=== PATIENT | male | born 1950 | race Caucasian/White ===

== ENCOUNTER 2020-06-10 10:20 | Outpatient (CLI) | payer MEDICARE, SELFPAY ==
--- NOTE | 2020-07-29 08:15 | PCAUD ---
Charges were entered on 07/28/2020 for this patient, but date of service was 06/10. Charges were not entered on the date of service due to an oversight. -Ovidio Coffey, [facility]
== END 2020-06-10 10:21 | disposition home or self-care (01) ==
LOC: ANHBWCAUD 10:20
DX: Z01.10 Encounter for examination of ears and hearing without abnormal findings (principal); F72 Severe intellectual disabilities
CPT/HCPCS: 92556; 92567; 92587

== ENCOUNTER 2021-01-25 13:02 | Outpatient (CLI) | payer MEDICARE, SELFPAY | END 2021-01-25 13:03 | disposition home or self-care (01) | DX: H91.93 Unspecified hearing loss, bilateral (principal) | CPT/HCPCS: 92556; 92567; 92587 ==

== ENCOUNTER 2022-03-07 09:08 | Outpatient (CLI) | payer MEDICARE, SELFPAY | END 2022-03-07 09:09 | disposition home or self-care (01) | LOC: ANHBWCAUD 09:09 | PROVIDERS: Visit Provider Family Medicine | DX: H91.93 Unspecified hearing loss, bilateral (principal) | CPT/HCPCS: 92556; 92567; 92587 ==

== ENCOUNTER 2023-04-18 10:15 | Outpatient (CLI) | payer MEDICARE, MEDICAID, SELFPAY | END 2023-04-18 10:16 | disposition home or self-care (01) | PROVIDERS: Visit Provider Family Medicine | DX: F72 Severe intellectual disabilities (principal) | CPT/HCPCS: 99199 ==

== ENCOUNTER 2023-07-11 09:50 | Outpatient (CLI) | payer MEDICARE, MEDICAID, SELFPAY | END 2023-07-11 09:51 | disposition home or self-care (01) | DX: H91.93 Unspecified hearing loss, bilateral (principal) | CPT/HCPCS: 99199 ==

== ENCOUNTER 2024-04-23 09:19 | Outpatient (CLI) | payer MEDICARE, MEDICAID, SELFPAY | END 2024-04-23 09:20 | disposition home or self-care (01) | LOC: ANHBWCAUD 09:20 | PROVIDERS: Visit Provider Physician Assistant | DX: H91.93 Unspecified hearing loss, bilateral (principal) | CPT/HCPCS: 92556; 92567; 92587 ==

== ENCOUNTER 2024-08-19 14:58 | Outpatient (CLI) | payer MEDICARE, MEDICAID, SELFPAY ==
--- OUTSIDE RECORDS SUMMARY | 2024-08-19 15:27 | XMS_ITS | Clinical Summary ---
Author Organization [facility] Address [address] [place] [address] Care Team Providers Care Senior Patrol Agent Name Role Phone Jeanie Mc MD Primary Care Provider [phone] Allergies No known active allergies Medications azelastine 205.5 mcg (0.15 %) spray,non-aerosol 0.3 mL (2 sprays total) 2 (two) times a day 1 Active calcium carbonate-vitamin D3 1,250mg (500mg elemental) - 5 mcg (200 units) per tablet Take 1 tablet by mouth 2 (two) times a day with meals Active docusate sodium (COLACE) 100 mg capsule 7 Active finasteride (PROSCAR) 5 mg tablet Take 1 tablet (5 mg total) by mouth daily 9 Active Robafen 100 mg/5 mL syrup 3 (three) times a day as needed for cough Active lamoTRIgine (LaMICtal) 200 mg tablet Take 1 tablet (200 mg total) by mouth nightly 9 Active lurasidone (LATUDA) 60 mg tablet 1 tablet (60 mg total) daily Active QUEtiapine XR (SEROquel XR) 300 mg 24 hr tablet Take 1 tablet (300 mg total) by mouth nightly 1 Active QUEtiapine XR (SEROquel XR) 50 mg tablet extended release 24 hr Take 1 tablet (50 mg total) by mouth daily Active rivastigmine (EXELON) 6 mg capsule Take 1 capsule (6 mg total) by mouth 2 (two) times a day Active simvastatin (ZOCOR) 20 mg tablet Take 1 tablet (20 mg total) by mouth nightly Active ferrous sulfate 325 mg (65 mg of elemental iron) tabletIndications :Iron Deficiency Anemia Take 1 tablet (325 mg total) by mouth daily with breakfast Active lamoTRIgine (LaMICtal) 150 mg tablet Take 1 tablet (150 mg total) by mouth daily Active memantine (NAMENDA) 10 mg tabletIndications :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 Dementia Take 1 tablet (10 mg total) by mouth 2 (two) times a day Active acetaminophen (TYLENOL) 325 mg tablet Take 2 tablets (650 mg total) by mouth every 4 (four) hours as needed for pain Active aluminum-magnesiu m hydroxide-simethi cone (MAALOX) suspension 200-200-20 mg/5 mL Take 30 mL by mouth every 4 (four) hours as needed for heartburn Active UNABLE TO FIND Take 1 each by mouth as needed Med Name: Banofen Active bisacodyL 5 mg tablet Take 10 mg by mouth as needed Active bismuth subsalicylate (PEPTO-BISMOL) suspension Take 30 mL by mouth as needed for indigestion Active sulfamethoxazole- trimethoprim (BACTRIM DS) 800-160 mg per tablet Take by mouth 2 (two) times a day Active cephalexin (KEFLEX) 500 mg capsule Take 1 capsule (500 mg total) by mouth 4 (four) times a day 5 capsule Active Active Problems Problem Noted Date Diagnosed Date Left ureteral stone 08/10/2023 Surgical History Surgery Date Site/Laterality Comments OTHER SURGICAL HISTORY pt has had other surgeries, staff at [facility] not sure what they were at this time EXTRACORPOREAL SHOCK WAVE LITHOTRIPSY 08/16/2023 Medical History Medical History Date Comments Dementia (HCC) Severe intellectual disability HTN (hypertension) Hypercholesterolemia Paranoid schizophrenia (CMS/HCC) (HCC) BPH (benign prostatic hyperplasia) Anxiety Social History Tobacco Use Types Packs/Day Years Used Date Smoking Tobacco: Never Smokeless Tobacco: Never AUDIT-C Answer Date Recorded Q1: How often do you have a drink containing alcohol? Never 09/27/2023 Q2: How many drinks containi ng alcohol do you have on a typical day when you are drinking? Patient does not drink Frequency of Binge Drinking Not on file 01/2024 Personal Safety Answer Date Recorded Have you ever been in or are you currently in a harmful physical or emotional relationship or is someone making you feel afraid or unsafe? Denies 10/01/2023 Sex and Gender Information Value Date Recorded Sex Assigned at Not on file Legal Sex Male 1:41 AM [employer] Gender Identity Not on file Sexual Orientation Not on file Obstetrics History Last Filed Vital Signs Vital Sign Reading Time Taken Comments Blood Pressure 137/59 10/01/2023 8:53 PM CDT Pulse 81 10/01/2023 8:53 PM CDT Temperature 36.6 ??C (97.8 ??F) 10/01/2023 8:53 PM CD T Respiratory Rate 18 10/01/2023 8:53 PM CDT Oxygen Saturation 100% 10/01/2023 8:53 PM CDT Inhaled Oxygen Concentration - - Weight 81.6 kg (180 lb) 10/01/2023 8:53 PM CDT Height 182.9 cm (6') 10/01/2023 8:53 PM CDT Body Mass Index 24.41 10/01/2023 8:53 PM CDT Plan of Treatment Health Maintenance Due Date Last Done Comments Colon Cancer Screening-Colonoscopy 1950 Depression Screening 1950 Hepatitis C Screening 1950 Hepatitis B Screening 01/23/1968 Well Visit 65+ 2015 Zoster Vaccine (2 of 3) 03/02/2016 01/06/2016 Covid-19 Vaccine (2023-2 5 season) 2024 06/25/2023, 05/04/2022, 03/03/2022, Additional history exists Influenza Vaccine (#1) 2024 , 05/04/2022, 04/28/2021, Additional history exists Fall Risk Assessment 09/26/2024 09/27/2023, 08/10/19 24 DTaP/Tdap/Td Vaccine (3 - Td or Tdap) 10/12/2027 10/11/2017, 05/08/2008 Pneumococcal vaccine 65+ Completed 12/17/2015, 02/21 Medical Devices Implanted Type Area [employer] Device Identifier Shelf Expiration Date Model / Serial / Lot [employer] July Contour 6fr 26cm Large Inner Lumen Low Profile Bladder Tushar T[employer] Latex Free 180-223 - [id number] Implanted:Qty: 1 on 09/27/2023 by Kevin Alvarenga MD at [facility] Left: Ureter [employer] July 05/04/2026 [id number] / / [id number] Explanted Type Area [employer] Manager Device Identifier Shelf Expiration Date Model / Serial / Lot [employer] July Contour 6fr 26cm Large Inner Lumen Low Profile Bladder Tushar [employer] Latex Free 180-223 - [id number] Implanted:Qty: 1 on 08/16/2023 by Kevin Alvarenga MD at [facility] Explanted:Qty: 1 on 09/27/2023 at [facility] Left: Ureter [employer] July 04/10/2026 [id number] / / [id number] Insurance [employer] MEDICARE Care Teams Senior Patrol Agent Relationship Specialty Start Date End Date Jeanie Mc MD PCP - General Family Medicine 09/07/23
--- OUTSIDE RECORDS SUMMARY | 2024-08-19 15:27 | XMS_ITS | Clinical Summary ---
Author Organization [facility] Address [address] [facility], [place] [address] Phone Care Team Providers Care [place] Folder Name Role Phone Thomas Moody DPM Unavailable [phone] Anais Randolph MD Primary Care Provider [phone] Allergies No known active allergies Medications simvastatin (ZOCOR) 20 MG Tablet Take 20 mg by mouth daily. Active Oyster Shell 500 MG Tablet Take 500 mg by mouth 2 times daily. Active rivastigmine (EXELON) 6 MG Capsule Take 6 mg by mouth 2 times daily. Active docusate sodium (COLACE) 100 MG CapsuleIndicatio ns:Constipation, unspecified constipation type Take 1 Cap by mouth 2 times daily. 180 Cap 3 08/18/19 17 Active LamoTRIgine (LAMICTAL) 200 MG Tablet Take 200 mg by mouth 2 times daily. 11/12/19 19 Active Azelastine HCl 0.15 % Solution 2 Puffs 2 times daily. 10/29/19 21 Active finasteride (PROSCAR) 5 MG Tablet Take 1 Tablet by mouth nightly. 90 Tablet 11/05/19 24 Active memantine (NAMENDA) 10 MG Tablet Take 10 mg by mouth 2 times daily. Active bismuth subsalicylate (Stomach Relief) 262 MG/15ML Suspension Take 30 mL by mouth. Active bisacodyl EC (DULCOLAX) 5 MG Tablet Delayed Response Take 10 mg by mouth. Active aluminum & magnesium hydroxide-simeth icone (Antacid Regular Strength) 200-200-20 MG/5ML Suspension Take 30 mL by mouth. Active Lurasidone HCl 80 MG Tablet Take 80 mg by mouth every morning. Active diphenhydrAMINE (BENADRYL) 25 MG Tablet Take 25 mg by mouth every 6 hours as needed. Active Acetaminophen-gu aiFENesin (CHEST CONGESTION DAYTIME PO) Take by mouth as needed. Active acetaminophen (Tylenol) 325 MG Tablet Take 325 mg by mouth every 4 hours as needed for Moderate or more severe pain. Active QUEtiapine Fumarate 400 MG Tablet Take 400 mg by mouth 2 times daily. Active melatonin 3 MG Tablet Take 3 mg by mouth nightly. 07/28/19 25 Active methenamine (HIPREX) 1 GM Tablet Take 1 g by mouth 2 times daily. 07/26/19 25 Active Misc. Devices (Egg Crate Bed Pad) MiscIndications: Pressure injury of sacral region, stage 2 (HCC) Use nightly or when in bed for pressure relief. 1 Each 08/08/19 25 Active ZINC OXIDE, TOPICAL, 10 % Cream 1 Each by Apply externally route 2 times daily. 1 g 1 08/14/19 25 Active LamoTRIgine (LAMICTAL) 150 MG Tablet Take 150 mg by mouth daily. Reported on 09/28/2016 09/07/19 17 2023 Discontinued(M ed List Clean Up) ferrous sulfate 325 (65 Fe) MG Tablet Take by mouth. 2024 Discontinued(M ed List Clean Up) nystatin (MYCOSTATIN) 111975 UNIT/GM CreamIndications :Candidiasis of skin Apply 3 times daily for 90 days. Apply cream 3 times daily for 90 days, 7AM, 5PM, 9PM, Apply a thin layer to red area on buttocks, max dose 3 times in 24 hours. 60 g 3 05/13/20 24 2024 Discontinued(M ed List Clean Up) QUEtiapine Fumarate (SEROQUEL XR) 400 MG TABLET SR 24 HR Take 400 mg by mouth nightly. 2023 Discontinued(D uplicate Order) cephALEXin (KEFLEX) 500 MG Capsule Take 1 Capsule by mouth 4 times daily for 7 days. 28 Capsule 07/23/19 25 2024 Discontinued cephALEXin (KEFLEX) 500 MG Capsule Take 1 Capsule by mouth 4 times daily for 7 days. 28 Capsule 07/23/19 25 2024 Misc. Devices (Egg Crate Bed Pad) MiscIndications: Pressure injury of sacral region, stage 2 (HCC) Use nightly or when in bed for pressure relief. 1 Each 08/08/19 25 2024 Discontinued Active Problems Problem Noted Date Diagnosed Date Cellulitis and abscess of buttock 07/21/2024 Acute kidney injury 07/21/2024 Decubitus ulcers 07/21/2024 Fecal impaction 07/21/2024 Stercoral colitis 07/21/2024 Seizure disorder 07/21/2024 Sepsis 12/14/2020 Chronic constipation 10/09/2018 Alzheimer's dementia without behavioral disturba nce 09/28/2016 Psychotic mood disorder 09/28/2016 Benign prostatic hyperplasia without lower urinary tract symptoms 09/28/2016 Iron deficiency anemia 09/28/2016 Severe intellectual disability 12/10/2015 Parkinson's disease 07/12/2010 Anxiety disorder Hyperlipidemia Intellectual disability Paranoid schizophrenia Dementia BPH (benign prostatic hyperplasia) Resolved Problems Problem Noted Date Diagnosed Date Resolved Date Dental infection 12/14/2020 12/17/2020 UTI (urinary tract infection) 12/14/2020 12/17/2020 Essential hypertension, benign 06/07/2010 12/04/2019 Hypertension 07/28/2021 High cholesterol 01/24/2021 Anxiety 12/17/2020 Encounters Date Type Department Care Team Description 08/18/2024 Telephone [facility] [address] [place] [address] Maria L Hernandez APRN, PADDING MACHINE OPERATOR Form Completion 08/14/2024 12:30 PM CARPET SEWING MACHINE OPERATOR Office Visit [facility] [address] [place] [address] Maria L Hernandez APRN, PADDING MACHINE OPERATOR Elisabeth Bal PAC Pressure injury of sacral region, stage 2 (HCC) Discharge Disposition: Discharged to home or Selfcare 08/14/2024 Travel 08/08/2024 9:30 AM CARPET SEWING MACHINE OPERATOR Office Visit [facility] [place] [address] [place] [address] Maria L Hernandez APRN, PADDING MACHINE OPERATOR Pressure injury of sacral region, stage 2 (HCC) (Primary Dx); Parkinson's disease, unspecified whether dyskinesia present, unspecified whether manifestations fluctuate (HCC); Intellectual disability Discharge Disposition: Discharged to home or Selfcare 08/08/2024 Travel 07/21/2024 10:04 AM CARPET SEWING MACHINE OPERATOR - 07/23/2024 3:51 PM CARPET SEWING MACHINE OPERATOR Hospital Encounter [facility] [address] [place] [address] Manny Roy MD Dianati, Behfar, MD Bismack, Gregory Thomas, MD Cellulitis and abscess of buttock Discharge Disposition: Discharged to home or Selfcare 07/21/2024 Travel 06/03/2024 10:30 AM [facility] Office Visit [facility] [address] [place] [address] Anais Randolph MD Learning difficulty due to cognitive limitations (Primary Dx); Parkinson's disease with dyskinesia and fluctuating manifestations (HCC); Moderate dementia, unspecified dementia type, unspecified whether behavioral, psychotic, or mood disturbance or anxiety (HCC) Discharge Disposition: Discharged to home or Selfcare 06/03/2024 Travel 05/30/[address] [address] Anais Randolph MD Appointment (Athlete physical ) 05/25/2024 10:25 PM CARPET SEWING MACHINE OPERATOR - 05/26/2024 1:16 AM [facility] Emergency [facility] [address] [place] [address] Sigifredo Aguilera MD Transient alteration of awareness Discharge Disposition: Discharged to home or Selfcare 05/25/2024 Travel from Last 3 Months Immunizations Immunization Administration Dates Next Due Covid-19, Mrna, Lnp-s, Pf, 3 0 Mcg/0.3 Ml Dose (Pfizer) 04/28/2021,09/21/2020,08/31/2020 Influenza Vaccine greater than 3 yrs 03/23/2018, 03/23/2015 Influenza Vaccine, Quadrivalent, PF 03/24,05/04/2022,04/28/2021,2017,05/02/2017 Influenza Vaccine,unspecifie d Formulation 03/23/2014 Influenza, Injectable, Mdck,quadrivalent,with Preservative 04/30/2019 Influenza, Injectable, Quadrivalent 05/19/2016 Influenza, Quadrivalent, Adjuvanted 05/06/2020 Influenza, Seasonal, Injecta ble, Undefined 03/23/2018,04/14/2015,03/23/2015,2013,04/25/2013 PUR PCV-13 12/17/2015 Pneumococcal Vaccine - 13 Valent 12/17/2015 Pneumococcal Vaccine Adult - 23 Valent 03/16/2015 RSV, Recombinant, Protein Hurst bunit Rsvpref, Adjuvant Recon (Arexvy) 08/30/2023 TB Skin Test 11/19/2018,07/23/2014 TDAP Vaccine 10/11/2017,05/08/2008 Tetanus Toxoid, Unspecified Formulation 04/22/2008 Zoster Vaccine, live 01/06/2016 Social History Tobacco Use Types Packs/Day Years Used Date Smoking Tobacco: Never Smokeless Tobacco: Never Tobacco Cessation:Counseling Given: Not Answered Alcohol Use Standard Drinks/Week Comments No 0 (1 standard drink = 0.6 oz pur e alcohol) [facility] Utilities Answer Date Recorded In the past 12 months has e [employer], gas, oil, or water [employer] threatened to shut off services in your home? Patient declined 07/21/2024 Social Connection and Isolation Panel [NHANES] A nswer Date Recorded In a typical week, how many times do you talk on the phone with family, friends, or neighbors? Never 07/30/2023 How often do you get togethe r with friends or relatives? Patient declined 07/30/2023 How often do you attend druze or holiness serv ices? Patient declined 07/30/2023 Do you belong to any clubs o r organizations such as druze groups, unions, fraternal or athletic groups, or school groups? No 07/30/2023 How often do you attend meet ings of the clubs or organizations you belong to? Patient declined 07/30/2023 Are you , , di vorced, , never , or living with a partner? Never 07/30/2023 AUDIT-C Answer Date Recorded Q1: How often do you have a drink containing alc ohol? Never 07/30/2023 Q2: How many drinks containi ng alcohol do you have on a typical day when you are drinking? Patient declined 07/30/2023 Q3: How often do you have si x or more drinks on one occasion? Never 07/30/2023 Overall Financial Resource Strain (CARDIA) Answe r Date Recorded How hard is it for you to pa y for the very basics like food, housing, medical care, and heating? Patient unable to answer 07/30/2023 [employer] - Occupational Stress Questionnaire Answer Date Recorded Do you feel stress - tense, restless, nervous, or anxious, or unable to sleep at night because your mind is troubled all the time - these days? Patient declined 07/30/2023 Exercise Vital Sign Answer Date Recorde d On average, how many days pe r week do you engage in moderate to strenuous exercise (like a brisk walk)? 0 days 07/30/2023 On average, how many minutes do you engage in exercise at this level? 0 min 07/30/2023 Hunger Vital Sign Answer Date Recorded Within the past 12 months, y ou worried that your food would run out before you got the money to buy more. Patient declined Within the past 12 months, t he food you bought just didn't last and you didn't have money to get more. Patient declined PRAPARE - Transportation Answer Date Re corded In the past 12 months, has l ack of transportation kept you from medical appointments or from getting medications? Patient declined 07/21/2024 In the past 12 months, has l ack of transportation kept you from meetings, work, or from getting things needed for daily living? Patient declined 07/21/2024 Housing Stability Vital Sign Answer Noe e Recorded In the last 12 months, was t here a time when you were not able to pay the mortgage or rent on time? Patient unable to answer 07/30/2023 In the last 12 months, how m any places have you lived? 1 07/30/2023 In the last 12 months, was t here a time when you did not have a steady place to sleep or slept in a correction (including now)? No 07/30/2023 Housing Stability Vital Sign Answer Noe e Recorded In the last 12 months, was t here a time when you were not able to pay the mortgage or rent on time? Patient declined 07/21/20 24 In the past 12 months, how m any times have you moved where you were living? 1 07/21/2024 At any time in the past 12 m [facility], were you homeless or living in a correction (including now)? Patient declined 07/21/2024 Sexually Active Control Partners Comments Not Currently Sex and Gender Information Value Date Recorded Sex Assigned at Not on file Legal Sex Male 11:26 PM CDT Gender Identity Not on file Sexual Orientation Not on file Occupation Industry Job Start Date Job End Date disabled Not on file Not on file Not on file Last Filed Vital Signs Vital Sign Reading Time Taken Comments Blood Pressure 114/64 08/08/2024 9:40 AM CARPET SEWING MACHINE OPERATOR Pulse 86 08/08/2024 9:40 AM CARPET SEWING MACHINE OPERATOR Temperature 36.7 ??C (98 ??F) 08/08/2024 9:40 AM CARPET SEWING MACHINE OPERATOR Respiratory Rate 18 08/08/2024 9:40 AM CARPET SEWING MACHINE OPERATOR Oxygen Saturation 97% 08/08/2024 9:40 AM CARPET SEWING MACHINE OPERATOR Inhaled Oxygen Concentration - - Weight 83.9 kg (185 lb) 08/08/2024 9:40 AM CARPET SEWING MACHINE OPERATOR Height 177.8 cm (5' 10 ) 08/08/2024 9:40 AM CARPET SEWING MACHINE OPERATOR Body Mass Index 26.54 08/08/2024 9:40 AM CARPET SEWING MACHINE OPERATOR Plan of Treatment Upcoming Encounters Date Type Department Care Team (Late st Contact Info) Description 08/25/2024 9:30 AM CARPET SEWING MACHINE OPERATOR [facility] [address] [place] [phone] Markel Bonilla MD [address] [place] [address] Discharge Disposition: Discharged to home or Selfcare 08/26/2024 9:30 AM CARPET SEWING MACHINE OPERATOR Office Visit [facility] - [place] [address] [place] [phone] Maria L Hernandez, GATE GUARD, PADDING MACHINE OPERATOR [address] [place] [address] 11/07/2024 9:30 AM CDT Office Visit [facility] - [place] [address] [place] [phone] Anais Randolph MD [address] [place] [address] Health Maintenance Due Date Last Done Comments Hepatitis C Virus (HCV) Screening 1950 Cologuard 01/23/2000 Immunochemical Fecal Occult Blood 01/23/2000 Influenza Immunization (#1) 03/23/202403/24, 05/04/2022, 04/28/2021, Additional history exists SARS-COV-2 Immunization () 03/23/2024 06/25/2023, 05/04/2022, 03/03/2022, Additional history exists Td Immunization Every 10 Years (Adults With 1 Tdap) 10/12/2027 10/11/2017, 05/08/2008 Colonoscopy 12/02/2028 12/02/2018, 04/01/2013 Colorectal Cancer Screening 12/02/2028 12/02/2018 Pneumococcal Immunization (50+ years) Completed 12/17/2015, 12/17/2015, 03/16/2015 Pneumococcal Immunization Combined Discontinued 12/17/2015, 12/17/2015, 03/16/2015 Zoster Immunization Discontinued 01/06/2016 Respiratory Syncytial Virus (RSV) Immunization (Adult) Completed 08/30/2023 Hepatitis B Immunization Aged Out No longer eligible based on patient's age to complete this topic Meningococcal Immunization (ACWY) Aged Out No longer eligible based on patient's age to complete this topic Rotavirus Immunization Aged Out No lo nger eligible based on patient's age to complete this topic Procedures Procedure Name Priority Date/Time Associated Diagnosis Comments CBC WITH AUTO DIFFERENTIAL Routine 07/23/2024 5:34 AM CARPET SEWING MACHINE OPERATOR BASIC METABOLIC PANEL W/ CALCIUM TOTAL Routine 07/23/2024 5:34 AM CARPET SEWING MACHINE OPERATOR COMPLETE BLOOD COUNT (CBC) WITH DIFF Routine 07/23/2024 5:34 AM CARPET SEWING MACHINE OPERATOR CBC WITH AUTO DIFFERENTIAL Routine 07/22/2024 5:47 AM CARPET SEWING MACHINE OPERATOR COMPLETE BLOOD COUNT (CBC) WITH DIFF Routine 07/22/2024 5:47 AM CARPET SEWING MACHINE OPERATOR BASIC METABOLIC PANEL W/ CALCIUM TOTAL Routine 07/22/2024 5:47 AM CARPET SEWING MACHINE OPERATOR MRSA NASAL PCR STAT 07/21/2024 1:30 PM CARPET SEWING MACHINE OPERATOR MRSA NASAL BY PCR STAT 07/21/2024 1:3 0 PM CARPET SEWING MACHINE OPERATOR LACTIC ACID (LACTATE) STAT 07/21/2024 1:29 PM CARPET SEWING MACHINE OPERATOR CT PELVIS W/O CONTRAST SOFT TISSUE Stat with Interpretation 07/21/2024 11:46 AM CARPET SEWING MACHINE OPERATOR LACTIC ACID (LACTATE) STAT 07/21/2024 10:50 AM CARPET SEWING MACHINE OPERATOR GOLD TOP TUBE STAT 07/21/2024 10:44 AM CARPET SEWING MACHINE OPERATOR BLUE TOP TUBE STAT 07/21/2024 10:44 AM CARPET SEWING MACHINE OPERATOR CBC WITH AUTO DIFFERENTIAL STAT 07/21/2024 10:44 AM CARPET SEWING MACHINE OPERATOR EXTRA TUBES STAT 07/21/2024 10:44 AM CARPET SEWING MACHINE OPERATOR CMP (COMPREHENSIVE METABOLIC PANEL) STAT 07/21/2024 10:44 AM CARPET SEWING MACHINE OPERATOR COMPLETE BLOOD COUNT (CBC) WITH DIFF STAT 07/21/2024 10:44 AM CARPET SEWING MACHINE OPERATOR CRITICAL CARE Routine 07/21/2024 10:41 AM CARPET SEWING MACHINE OPERATOR XR CHEST SINGLE VIEW PORTABLE STAT 05/26/2024 12:38 AM CARPET SEWING MACHINE OPERATOR CT HEAD OR BRAIN WO CONTRAST Stat with Interpretation 05/26/2024 12:06 AM CARPET SEWING MACHINE OPERATOR URINALYSIS REFLEX IF INDICATED BY ABNORMAL RESULTS STAT 05/25/2024 11:24 PM CARPET SEWING MACHINE OPERATOR CULTURE, URINE STAT 05/25/2024 11:24 PM CARPET SEWING MACHINE OPERATOR CBC WITH AUTO DIFFERENTIAL STAT 05/25/2024 10:41 PM CARPET SEWING MACHINE OPERATOR COMPLETE BLOOD COUNT (CBC) WITH DIFF STAT 05/25/2024 10:41 PM CARPET SEWING MACHINE OPERATOR CMP (COMPREHENSIVE METABOLIC PANEL) STAT 05/25/2024 10:41 PM CARPET SEWING MACHINE OPERATOR POCT GLUCOSE STAT 05/25/2024 10:33 PM CARPET SEWING MACHINE OPERATOR EKG 12 LEAD STAT 05/25/2024 10:29 PM CARPET SEWING MACHINE OPERATOR EKG SCAN 05/25/2024 12:00 AM CDT from Last 3 Months Results * (ABNORMAL) CBC with Auto Differential (07/23/2024 5:34 AM CARPET SEWING MACHINE OPERATOR) Only the most recent of4 resultswithin the time period is included. WBC 9.06 4.00 - 12.00 10(3)/mcL 07/23/2024 5:52 AM CARPET SEWING MACHINE OPERATOR [facility] RBC 3.35(L) 4.40 - 5.80 10(6)/mcL 07/23/2024 5:52 AM CARPET SEWING MACHINE OPERATOR [facility] HEMOGLOBIN (HGB) 10.1(L) 13.0 - 16.5 g/dL 07/23/2024 5:52 AM CARPET SEWING MACHINE OPERATOR [facility] HEMATOCRIT (HCT) 30.9(L) 38.0 - 50.0 % 07/23/2024 5:52 AM CARPET SEWING MACHINE OPERATOR [facility] MCV 92.2 82.0 - 96.0 fL 07/23/2024 5:52 AM CARPET SEWING MACHINE OPERATOR [facility] MCH 30.1 26.0 - 32.0 pg 07/23/2024 5:52 AM [facility] MCHC 32.7 31.0 - 36.0 g/dL 07/23/2024 5:52 AM [facility] PLATELET COUNT 181 140 - 440 10(3)/[facility] 07/23/2024 5:52 AM [facility] RDW 14.1 11.8 - 15.5 % 07/23/2024 5:52 AM [facility] MPV 10.7 8.0 - 12.6 fL 07/23/2024 5:52 AM [facility] NEUTROPHILS 82.1(H) 40.0 - 68.0 % 07/23/2024 5:52 AM [facility] LYMPHOCYTES 6.5(L) 19.0 - 49.0 % 07/23/2024 5:52 AM [facility] MONOCYTES 10.0 3.0 - 13.0 % 07/23/2024 5:52 AM [facility] EOSINOPHILS 1.0 0.0 - 8.0 % 07/23/2024 5:52 AM [facility] BASOPHILS 0.4 0.0 - 1.0 % 07/23/2024 5:52 AM [facility] ABSOLUTE NEUTROPHILS 7.43(H) 1.40 - 5.30 10(3)/[facility] 07/23/2024 5:52 AM [facility] ABSOLUTE LYMPHOCYTES 0.59(L) 0.90 - 3.30 10(3)/[facility] 07/23/2024 5:52 AM [facility] ABSOLUTE MONOCYTES 0.91(H) 0.10 - 0.90 10(3)/[facility] 07/23/2024 5:52 AM [facility] ABSOLUTE EOSINOPHIL 0.09 0.00 - 0.50 10(3)/[facility] 07/23/2024 5:52 AM [facility] ABSOLUTE BASOPHILS 0.04 0.00 - 0.10 10(3)/[facility] 07/23/2024 5:52 AM [facility] NRBC PER 100 WBC 0 07/23/19 5:52 AM [facility] Blood Venipuncture / Unknown 07/23/2024 5:34 AM CARPET SEWING MACHINE OPERATOR 07/23/2024 5:48 AM CARPET SEWING MACHINE OPERATOR us Marcela Worthy GATE GUARD, PADDING MACHINE OPERATOR HEMATOLOGY ORDERABLES Final Result [facility] [address] [place] [address] * (ABNORMAL) Basic Metabolic Panel w/ Calcium Total (07/23/2024 5:34 AM CARPET SEWING MACHINE OPERATOR) Only the most recent of2 resultswithin the time period is included. SODIUM 143 136 - 145 mmol/L 07/23/2024 6:13 AM [facility] POTASSIUM 3.7 3.5 - 5.1 mmol/L 07/23/2024 6:13 AM [facility] CHLORIDE 112(H) 98 - 107 mmol/L 07/23/2024 6:13 AM [facility] CO2, VENOUS 24 22 - 30 mmol/L 07/23/2024 6:13 AM [facility] ANION GAP 10.7 <18.0 mmol/L 07/23/2024 6:13 AM [facility] GLUCOSE 119(H) 70 - 99 mg/dL 07/23/2024 6:13 AM [facility] BUN 28(H) 8 - 26 mg/dL 07/23/2024 6:13 AM [facility] CREATININE, BLOOD 1.20 0.70 - 1.30 mg/dL 07/23/2024 6:13 AM [facility] BUN/CREATININE RATIO 23(H) 12 - 20 ratio 07/23/2024 6:13 AM [facility] CALCIUM 8.2(L) 8.7 - 10.5 mg/dL 07/23/2024 6:13 AM [facility] GFR, ESTIMATED >60 >=60 07/23/2024 6:13 AM CARPET SEWING MACHINE OPERATOR [facility] Comment: Creatinine Clearance is the preferred criteria for selecting drug dose adjustments in renally impaired patients. ??The GFR is provided as additional pertinent clinical information. GFR is reported in mL/min/1.73 sq m. Calculation based on the Chronic Kidney Disease Epidemiology Collaboration (CKD- EPI) equation refit without adjustment for race. GFR, EST. >60 >=60 025 6:13 AM CARPET SEWING MACHINE OPERATOR [facility] GFR, EST. NONAFRICAN 59(L) >=60 07/23/2024 6:13 AM CARPET SEWING MACHINE OPERATOR [facility] Blood Venipuncture / Unknown 07/23/2024 5:34 AM CARPET SEWING MACHINE OPERATOR 07/23/2024 5:47 AM CARPET SEWING MACHINE OPERATOR Marcela Worthy APRN, PADDING MACHINE OPERATOR CHEMISTRY ORDERABLES Final Result Performing Organization Address City/[facility]/ZIP Co de Phone Number [facility] [address] [place] [address] * MRSA NASAL PCR (07/21/2024 1:30 PM CARPET SEWING MACHINE OPERATOR) MRSA PCR RESULT Negative Negative, Invalid 07/21/2024 2:49 PM CARPET SEWING MACHINE OPERATOR [facility] Other NASOPHARYNGEAL SWAB / Unknown Non-Phlebotomy Collection / Unknown 07/21/2024 1:30 PM CARPET SEWING MACHINE OPERATOR 07/21/2024 1:30 PM CARPET SEWING MACHINE OPERATOR us Kathia Peralta MD MICROBIOLOGY - GENERAL ORDERAB LES Final Result [facility] [address] [place] [address] * Lactic Acid (Lactate) (07/21/2024 1:29 PM CARPET SEWING MACHINE OPERATOR) Only the most recent of2 resultswithin the time period is included. LACTIC ACID 1.8 0.7 - 2.0 mmol/L 07/21/2024 1:46 PM CARPET SEWING MACHINE OPERATOR [facility] Comment: Specimen is hemolyzed. In vitro hemolysis could affect results. Clinical correlation advised. Blood Venipuncture / Unknown 07/21/2024 1:29 PM CARPET SEWING MACHINE OPERATOR 07/21/2024 1:30 PM CARPET SEWING MACHINE OPERATOR us Manny Roy MD CHEMISTRY ORDERABLES Final Result [facility] [address] [facility] [place] [address] * CT PELVIS W/O CONTRAST SOFT TISSUE (07/21/2024 11:46 AM CARPET SEWING MACHINE OPERATOR) Anatomical Region Laterality Modality Abdomen N/A Computed Tomogra phy 07/21/2024 12:2 4 PM CARPET SEWING MACHINE OPERATOR Impressions 07/21/2024 12:26 PM CARPET SEWING MACHINE OPERATOR IMPRESSION: 0.4 cm mid left ureteral stone without hydronephrosis. ??Likely an incidental finding. ??Please correlate clinically. Large volume stool in the rectosigmoid with subtle suggestion of wall thickening which could indicate a degree of stercoral colitis. Narrative 07/21/2024 12:26 PM CARPET SEWING MACHINE OPERATOR EXAM DESCRIPTION: ?? CT PELVIS W/O CONTRAST SOFT TISSUE REASON FOR STUDY: ?? Pain, swelling, and redness to left buttocks x 2 days. Hx of HTN, paranoid schizophrenia, BPH, and dementia. ?? TECHNIQUE: CT scan of the pelvis performed ?? without ??intravenous and ?? without ??oral contrast using helical scanning technique. Reconstructed coronal and sagittal MPR images reviewed. All images stored on PACS. ??Automated exposure control was used as a dose optimization technique for this examination. COMPARISON: ?? 01/06/2014 CT abdomen pelvis FINDINGS: The sensitivity for detection of solid visceral lesions is diminished without the use of intravenous contrast. URINARY: ?? Urinary bladder is normally distended. ??Regions of posterior wall thickening previously suspected are not as well demonstrated on the current exam without contrast. The mid left ureter is partially included on this study it does not include the kidneys. ??Within the ureter a 0.4 cm calcification consistent with a ureteral stone is identified. GI: ?? Large volume stool within the rectosigmoid. ??Inferiorly there is a subtle suggestion of wall thickening of the rectum which could indicate a degree of stercoral colitis. ??Please correlate clinically. ??No surrounding adenopathy or induration. Visualized portions of small and large bowel elsewhere unremarkable. PERITONEUM: ?? Not fully included in field of view. No visualized abnormality. RETROPERITONEUM: ?? Not fully included in field of view. No visualized abnormality. REPRODUCTIVE: ?? No significant abnormality. VASCULATURE: ?? Abdominal aorta not fully included in field of view. No visualized abnormality. MUSCULOSKELETAL: ?? Sclerotic focus anterior aspect of the acetabulum unchanged as evidence of benign process. OTHER: ?? No other abnormality. THIS IS AN ELECTRONICALLY VERIFIED FINAL REPORT 07/21/2024 12:24 PM - Electronically signed by ??Rod Tavarez M.D. RB: CORAL D: ??07/21/2024 12:24 PM T: ??07/21/2024 12:24 PM Report ID: [id number] Reading Location: ??[id number] Procedure Note Rod Tavarez MD - 07/21/2024 EXAM DESCRIPTION: CT PELVIS W/O CONTRAST SOFT TISSUE REASON FOR STUDY: Pain, swelling, and redness to left buttocks x 2 days. Hx of HTN, paranoid schizophrenia, BPH, and dementia. TECHNIQUE: CT scan of the pelvis performed without intravenous and without oral contrast using helical scanning technique. Reconstructed coronal and sagittal MPR images reviewed. All images stored on PACS. Automated exposure control was used as a dose optimization technique for this examination. COMPARISON: 01/06/2014 CT abdomen pelvis FINDINGS: The sensitivity for detection of solid visceral lesions is diminished without the use of intravenous contrast. URINARY: Urinary bladder is normally distended. Regions of posterior wall thickening previously suspected are not as well demonstrated on the current exam without contrast. The mid left ureter is partially included on this study it does not include the kidneys. Within the ureter a 0.4 cm calcification consistent with a ureteral stone is identified. GI: Large volume stool within the rectosigmoid. Inferiorly there is a subtle suggestion of wall thickening of the rectum which could indicate a degree of stercoral colitis. Please correlate clinically. No surrounding adenopathy or induration. Visualized portions of small and large bowel elsewhere unremarkable. PERITONEUM: Not fully included in field of view. No visualized abnormality. RETROPERITONEUM: Not fully included in field of view. No visualized abnormality. REPRODUCTIVE: No significant abnormality. VASCULATURE: Abdominal aorta not fully included in field of view. No visualized abnormality. MUSCULOSKELETAL: Sclerotic focus anterior aspect of the acetabulum unchanged as evidence of benign process. OTHER: No other abnormality. THIS IS AN ELECTRONICALLY VERIFIED FINAL REPORT 07/21/2024 12:24 PM - Electronically signed by Rod Tavarez M.D. RB: CORAL Report ID: [id number] Reading Location: [id number] IMPRESSION: 0.4 cm mid left ureteral stone without hydronephrosis. Likely an incidental finding. Please correlate clinically. Large volume stool in the rectosigmoid with subtle suggestion of wall thickening which could indicate a degree of stercoral colitis. Manny Roy MD IMG CT ORDERABLES Final Re sult * Gold Top Tube (07/21/2024 10:44 AM CARPET SEWING MACHINE OPERATOR) Blood No Phlebotomy Charged / Unknown 07/21/2024 10:44 AM CARPET SEWING MACHINE OPERATOR 07/21/2024 11:05 AM CARPET SEWING MACHINE OPERATOR Manny Roy MD CHEMISTRY ORDERABLES Final Result Performing Organization Address [facility] Co de Phone Number [facility] [place] [address] * Blue Top Tube (07/21/2024 10:44 AM CARPET SEWING MACHINE OPERATOR) Blood No Phlebotomy Charged / Unknown 07/21/2024 10:44 AM CARPET SEWING MACHINE OPERATOR 07/21/2024 11:05 AM CARPET SEWING MACHINE OPERATOR Manny Roy MD HEMATOLOGY ORDERABLES Naida l Result Performing Organization Address City/[facility] Co de Phone Number [facility] [place] [address] * (ABNORMAL) CMP (07/21/2024 10:44 AM CARPET SEWING MACHINE OPERATOR) Only the most recent of2 resultswithin the time period is included. SODIUM 145 136 - 145 mmol/L 07/21/2024 11:28 AM [facility] POTASSIUM 4.0 3.5 - 5.1 mmol/L 07/21/2024 11:28 AM [facility] CHLORIDE 111(H) 98 - 107 mmol/L 07/21/2024 11:28 AM [facility] CO2, VENOUS 21(L) 22 - 30 mmol/L 07/21/2024 11:28 AM [facility] ANION GAP 17.0 <18.0 mmol/L 07/21/2024 11:28 AM [facility] GLUCOSE 214(H) 70 - 99 mg/dL 07/21/2024 11:28 AM [facility] BUN 55(H) 8 - 26 mg/dL 07/21/2024 11:28 AM [facility] CREATININE, BLOOD 2.13(H) 0.70 - 1.30 mg/dL 07/21/2024 11:28 AM [facility] BUN/CREATININE RATIO 26(H) 12 - 20 ratio 07/21/2024 11:28 AM [facility] TOTAL PROTEIN 7.1 6.3 - 8.2 g/dL 07/21/2024 11:28 AM [facility] ALBUMIN 3.7 3.5 - 5.0 g/dL 07/21/2024 11:28 AM [facility] A/G RATIO 1.1 1.0 - 2.2 07/21/2024 11:28 AM [facility] CALCIUM 9.5 8.7 - 10.5 mg/dL 07/21/2024 11:28 AM [facility] T BILI 0.7 0.2 - 1.2 mg/dL 07/21/2024 11:28 AM [facility] SGOT (AST) 42(H) 5 - 34 U/L 07/21/2024 11:28 AM [facility] SGPT (ALT) 51 0 - 55 U/L 07/21/2024 11:28 AM CARPET SEWING MACHINE OPERATOR [facility] ALKALINE PHOSPHATASE 96 40 - 150 U/L 07/21/2024 11:28 AM CARPET SEWING MACHINE OPERATOR [facility] GFR, ESTIMATED 32(L) >=60 07/21/2024 11:28 AM CARPET SEWING MACHINE OPERATOR [facility] Comment: Creatinine Clearance is the preferred criteria for selecting drug dose adjustments in renally impaired patients. ??The GFR is provided as additional pertinent clinical information. GFR is reported in mL/min/1.73 sq m. Calculation based on the Chronic Kidney Disease Epidemiology Collaboration (CKD- EPI) equation refit without adjustment for race. GFR, EST. 37(L) >=60 024 11:28 AM CARPET SEWING MACHINE OPERATOR [facility] GFR, EST. NONAFRICAN 31(L) >=60 07/21/2024 11:28 AM CARPET SEWING MACHINE OPERATOR [facility] Blood Venipuncture / Unknown 07/21/2024 10:44 AM CARPET SEWING MACHINE OPERATOR 07/21/2024 11:03 AM CARPET SEWING MACHINE OPERATOR us Manny Roy MD CHEMISTRY ORDERABLES Final Result [facility] [place] [address] * Critical Care (07/21/2024 10:41 AM CARPET SEWING MACHINE OPERATOR) Narrative Manny Roy MD - 07/21/2024 10:41 AM CARPET SEWING MACHINE OPERATOR Manny Roy MD ? 07/21/2024 ??1:05 PM Critical Care Performed by: Manny Roy MD Authorized by: Manny Roy MD ?? Critical care provider statement: ??Critical care time (minutes): ??35 ??Critical care was necessary to treat or prevent imminent or life-threatening deterioration of the following conditions: ??Sepsis and renal failure ??Critical care was time spent personally by me on the following activities: ??Development of treatment plan with patient or surrogate, discussions with primary provider, evaluation of patient's response to treatment, examination of patient, obtaining history from patient or surrogate, ordering and performing treatments and interventions, ordering and review of laboratory studies, ordering and review of radiographic studies, pulse oximetry, re-evaluation of patient's condition and review of old charts ??I assumed direction of critical care for this patient from another provider in my specialty: no ?Care discussed with: admitting provider ?? Manny Roy MD PROCEDURE/MINOR SURGICAL O RDERABLES Final Result * XR CHEST SINGLE VIEW PORTABLE (05/26/2024 12:38 AM CARPET SEWING MACHINE OPERATOR) Anatomical Region Laterality Modality Chest N/A Digital Radiogra phy 05/26/2024 12:5 9 AM CARPET SEWING MACHINE OPERATOR Impressions 05/26/2024 1:01 AM CARPET SEWING MACHINE OPERATOR IMPRESSION: No acute cardiopulmonary abnormality. Narrative 05/26/2024 1:01 AM CARPET SEWING MACHINE OPERATOR EXAM DESCRIPTION: XR CHEST SINGLE VIEW PORTABLE REASON FOR STUDY: altered mental status. Pt residential staff reports the pt had an unresponsive episode that lasted about 1-2 minutes today. Pt currently at baseline. HX: Dementia, HTN, Intellectual disability ?? TECHNIQUE: 1 ??radiographic view(s) of the chest. COMPARISON: 12/13/2020 FINDINGS: LUNGS: ??No focal opacity, pleural effusion, or pneumothorax. ?? Poor inspiratory result with bibasilar discoid atelectasis. HEART/MEDIASTINUM: ??Cardiac silhouette normal in size. Mediastinal and hilar contours appear normal. LINES/TUBES: ??None. BONES: ??No acute osseous abnormality. THIS IS AN ELECTRONICALLY VERIFIED FINAL REPORT 05/26/2024 12:59 AM - Electronically signed by ??Pedro Reyes M.D. KT: BENJI D: ??05/26/2024 12:59 AM T: ??05/26/2024 12:59 AM Report ID: [id number] Reading Location: ??[id number] Procedure Note Pedro Reyes MD - 05/26/2024 EXAM DESCRIPTION: XR CHEST SINGLE VIEW PORTABLE REASON FOR STUDY: altered mental status. Pt residential staff reports the pt had an unresponsive episode that lasted about 1-2 minutes today. Pt currently at baseline. HX: Dementia, HTN, Intellectual disability TECHNIQUE: 1 radiographic view(s) of the chest. COMPARISON: 12/13/2020 FINDINGS: LUNGS: No focal opacity, pleural effusion, or pneumothorax. Poor inspiratory result with bibasilar discoid atelectasis. HEART/MEDIASTINUM: Cardiac silhouette normal in size. Mediastinal and hilar contours appear normal. LINES/TUBES: None. BONES: No acute osseous abnormality. THIS IS AN ELECTRONICALLY VERIFIED FINAL REPORT 05/26/2024 12:59 AM - Electronically signed by Pedro Reyes M.D. KT: BENJI Report ID: [id number] Reading Location: [id number] IMPRESSION: No acute cardiopulmonary abnormality. us Sigifredo Aguilera MD IMG DIAGNOSTIC ORDERAB LES Final Result * CT HEAD OR BRAIN WO CONTRAST (05/26/2024 12:06 AM CARPET SEWING MACHINE OPERATOR) Anatomical Region Laterality Modality Head N/A Computed Tomogra phy 05/26/2024 12:3 9 AM CARPET SEWING MACHINE OPERATOR Impressions 05/26/2024 12:42 AM CARPET SEWING MACHINE OPERATOR IMPRESSION: No acute intracranial abnormality. Global atrophy and white matter changes consistent with small-vessel ischemic disease. Limited evaluation of the frontal lobes secondary to field of view and patient's kyphosis. Narrative 05/26/2024 12:42 AM CARPET SEWING MACHINE OPERATOR EXAM DESCRIPTION: ?? CT HEAD OR BRAIN WO CONTRAST REASON FOR STUDY: ?? Pt residential staff reports the pt had an unresponsive episode that lasted about 1-2 minutes today. Pt currently at baseline. HX: Dementia, HTN, Intellectual disability ?? TECHNIQUE: Axial images acquired through the brain without intravenous contrast. ??Coronal and sagittal reformats were performed. ??Images stored on PACS. ??Automated mA/kV exposure control was used as a dose optimization technique for this examination and patient examination was performed in strict accordance with principles of ALARA. COMPARISON: ?? CT of the head of January 15, 2024. FINDINGS: Evaluation of the frontal lobes is limited secondary to field of view and patient's kyphosis. ?? BRAIN: ??There is no midline shift, mass or mass effect. The ventricles, cisterns and sulci are globally and proportionally prominent consistent with atrophy. There is normal differentiation of the mendez-white matter. There is no visualized intracranial hemorrhage. ?There is decreased attenuation in the periventricular white matter, nonspecific, but likely related to small vessel ischemic change. ?? EXTRA-AXIAL SPACES: ?? No fluid collections. No masses. CALVARIUM: ?? No fracture. SINUSES/MASTOIDS: ?? No fluid or mucosal thickening. ORBITS: ?? No significant abnormality in their visualized portions.. OTHER: ?? No other significant abnormality. THIS IS AN ELECTRONICALLY VERIFIED FINAL REPORT 05/26/2024 12:39 AM - Electronically signed by ??Ioana Dockery M.D. SN: SN D: ??05/26/2024 12:39 AM T: ??05/26/2024 12:39 AM Report ID: [id number] Reading Location: ??[id number] Procedure Note Ioana Dockery MD - 05/26/2024 EXAM DESCRIPTION: CT HEAD OR BRAIN WO CONTRAST REASON FOR STUDY: Pt residential staff reports the pt had an unresponsive episode that lasted about 1-2 minutes today. Pt currently at baseline. HX: Dementia, HTN, Intellectual disability TECHNIQUE: Axial images acquired through the brain without intravenous contrast. Coronal and sagittal reformats were performed. Images stored on PACS. Automated mA/kV exposure control was used as a dose optimization technique for this examination and patient examination was performed in strict accordance with principles of ALARA. COMPARISON: CT of the head of January 15, 2024. FINDINGS: Evaluation of the frontal lobes is limited secondary to field of view and patient's kyphosis. BRAIN: There is no midline shift, mass or mass effect. The ventricles, cisterns and sulci are globally and proportionally prominent consistent with atrophy. There is normal differentiation of the mendez-white matter. There is no visualized intracranial hemorrhage. There is decreased attenuation in the periventricular white matter, nonspecific, but likely related to small vessel ischemic change. EXTRA-AXIAL SPACES: No fluid collections. No masses. CALVARIUM: No fracture. SINUSES/MASTOIDS: No fluid or mucosal thickening. ORBITS: No significant abnormality in their visualized portions.. OTHER: No other significant abnormality. THIS IS AN ELECTRONICALLY VERIFIED FINAL REPORT 05/26/2024 12:39 AM - Electronically signed by Ioana Britt.D. SN: Report ID: [id number] Reading Location: [id number] IMPRESSION: No acute intracranial abnormality. Global atrophy and white matter changes consistent with small-vessel ischemic disease. Limited evaluation of the frontal lobes secondary to field of view and patient's kyphosis. Sigifredo Aguilera MD IMG CT ORDERABLES Naida l Result * (ABNORMAL) Urinalysis w/ Reflex (05/25/2024 11:24 PM CARPET SEWING MACHINE OPERATOR) SPECIFIC GRAVITY 1.010 1.003 - 1.030 05/25/2024 11:48 PM CARPET SEWING MACHINE OPERATOR [facility] URINE PH 7.0 5.0 - 9.0 05/25/2024 11:48 PM CARPET SEWING MACHINE OPERATOR [facility] WBC ESTERASE 500 /uL(A) Negative 05/25/2024 11:48 PM CARPET SEWING MACHINE OPERATOR [facility] NITRITE Positive(A) Negative 05/25/2024 11:48 PM CARPET SEWING MACHINE OPERATOR [facility] PROTEIN, RANDOM URINE 15 mg/dL(A) Negative 05/25/2024 11:48 PM CARPET SEWING MACHINE OPERATOR [facility] URINE GLUCOSE, QUAL Negative Negative 05/25/2024 11:48 PM CARPET SEWING MACHINE OPERATOR [facility] URINE KETONES Negative Negative 05/25/2024 11:48 PM CARPET SEWING MACHINE OPERATOR [facility] UROBILINOGEN Normal Normal mg/dL 05/25/2024 11:48 PM CARPET SEWING MACHINE OPERATOR [facility] URINE BLOOD 10 /uL(A) Negative daylin/ul 05/25/2024 11:48 PM CARPET SEWING MACHINE OPERATOR [facility] URINALYSIS COLOR Yellow 05/25/20 11:48 PM CARPET SEWING MACHINE OPERATOR [facility] URINALYSIS CLARITY Very Cloudy 05/25/2024 11:48 PM CARPET SEWING MACHINE OPERATOR [facility] WBC (Urine) 6-10(A) Negative, 0-5 /hpf 05/25/2024 11:48 PM CARPET SEWING MACHINE OPERATOR [facility] URINE RBC'S 0-2 Negative, 0-2 /hpf 05/25/2024 11:48 PM CARPET SEWING MACHINE OPERATOR [facility] EPITHELIAL CELLS Occasional /lpf 05/25/20 11:48 PM CARPET SEWING MACHINE OPERATOR [facility] BACTERIA, URINE Packed(A) Negative /hpf 05/25/2024 11:48 PM CARPET SEWING MACHINE OPERATOR [facility] Urine URINE SPECIMEN / Unknown Non-Phlebotomy Collection / Unknown 05/25/2024 11:24 PM CARPET SEWING MACHINE OPERATOR 05/25/2024 11:31 PM CARPET SEWING MACHINE OPERATOR us Sigifredo Aguilera MD URINE ORDERABLES Final Result [facility] [place] [address] * Culture, Urine (05/25/2024 11:24 PM CARPET SEWING MACHINE OPERATOR) CULTURE RESULTS ESCHERICHIA COLI 05/28/2024 7:55 AM CARPET SEWING MACHINE OPERATOR [facility] CULTURE RESULTS Also mixed growth of distal urethral contaminants 05/28/2024 7:55 AM CARPET SEWING MACHINE OPERATOR [facility] Urine URINE SPECIMEN / Unknown Non-Phlebotomy Collection / Unknown 05/25/2024 11:24 PM CARPET SEWING MACHINE OPERATOR 05/25/2024 11:31 PM CARPET SEWING MACHINE OPERATOR Narrative Organism Antibiotic Method Susceptibility Escherichia coli Ampicillin [facility] VITEK II 4 mcg/ml: Susceptible Escherichia coli Ampicillin/sulbactam [facility] II <=2 mcg/ml: Susceptible Escherichia coli Cefazolin [facility] II <=4 mcg/ml: Susceptible Escherichia coli Cefepime [facility] II <=1 mcg/ml: Susceptible Escherichia coli Ceftriaxone [facility] II <=1 mcg/ml: Susceptible Escherichia coli Gentamicin [facility] II <=1 mcg/ml: Susceptible Escherichia coli Levofloxacin [facility] II <=0.12 mcg/ml: Susceptible Escherichia coli Meropenem [facility] II <=0.25 mcg/ml: Susceptible Escherichia coli Nitrofurantoin [facility] II <=16 mcg/ml: Susceptible Escherichia coli Piperacillin/Tazobactam [facility] II <=4 mcg/ml: Susceptible Escherichia coli Tobramycin [facility] VITEK II <=1 mcg/ml: Susceptible Escherichia coli Trimeth/Sulfamethoxazole [facility] VITEK I I <=20 mcg/ml: Susceptible us Sigifredo Aguilera MD MICROBIOLOGY - GENERAL ORDERABLES Final Result Performing Organization Address City/[facility]/ZIP Co de Phone Number [facility] [address] [place] [address], * POCT Glucose (05/25/2024 10:33 PM CARPET SEWING MACHINE OPERATOR) GLUCOSE,BEDSIDE POCT 88 70 - 99 mg/dL 05/25/2024 10:38 PM CARPET SEWING MACHINE OPERATOR [facility] Comment:Patient RN Performed Blood 05/25/2024 10:3 3 PM CARPET SEWING MACHINE OPERATOR 05/25/2024 10:38 PM CARPET SEWING MACHINE OPERATOR us None Provider POINT OF CARE TESTING Final Resu lt Performing Organization Address City/[facility]/ZIP Co de Phone Number [facility] [place] [address] * EKG 12 LEAD (05/25/2024 10:29 PM CARPET SEWING MACHINE OPERATOR) Ventricular Rate 66 BPM EXTERNAL EKG Atrial Rate 66 BPM EXTERNAL EKG P-R Interval 166 ms EXTERNAL EKG QRS Duration 104 ms EXTERNAL EKG Q-T Duration 438 ms EXTERNAL EKG QTC CALCULATION 459 ms EXTERNAL EKG P [place] 37 degrees EXTERNAL EKG R [place] -11 degrees EXTERNAL EKG T [place] 54 degrees EXTERNAL EKG 05/25/2024 10:2 9 PM CARPET SEWING MACHINE OPERATOR Impressions EXTERNAL EKG - 05/27/2024 3:41 PM CARPET SEWING MACHINE OPERATOR Normal sinus rhythm RSR' or QR pattern in V1 suggests right ventricular conduction delay POOR R-WAVE PROGRESSION Borderline ECG When compared with ECG of 13-DEC-2020 21:36, No significant change was found Confirmed by ZAHIRA MCPHERSON ([id number]) on 05/27/2024 3:41:54 PM Narrative Procedure Note Zahira Mcpherson MD - 05/27/2024 IMPRESSION: Normal sinus rhythm RSR' or QR pattern in V1 suggests right ventricular conduction delay POOR R-WAVE PROGRESSION Borderline ECG When compared with ECG of 13-DEC-2020 21:36, No significant change was found Confirmed by ZAHIRA MCPHERSON ([id number]) on 05/27/2024 3:41:54 PM us Sigifredo Aguilera MD IMG ECG ORDERABLES Fin al Result EXTERNAL EKG * EKG SCAN (05/25/2024 12:00 AM CDT) 05/25/2024 us Provider Scan IMG ECG ORDERABLES Final Result RESULTING AGENCY from Last 3 Months Insurance MEDICAID [place] MEDICARE C AETNA Advance Directives * Full Code (Latest Code Status on File) Date Activated Date Inactivated Comments 07/21/2024 6:40 PM CPR-Full Femi atment: FULL ARREST: Attempt Resuscitation/CPR wit intubation and mechanical ventilation. PRE-ARREST: Use entire range of life support measures to stabilize the patient. * Full Code Date Activated Date Inactivated Comments 12/14/2020 3:13 AM 12/17/2020 2:54 PM CPR-Full Femi atment: FULL ARREST: Attempt Resuscitation/CPR wit intubation and mechanical ventilation. PRE-ARREST: Use entire range of life support measures to stabilize the patient. Care Teams [place] Folder Relationship Specialty Start Date End Date Anias Randolph MD [address] [place] [address] PCP - General Family Medicine 11/05/23 Thomas Moody DPM Consulting Physician Podiatry 08/09/15
--- OUTSIDE RECORDS SUMMARY | 2024-08-19 15:27 | XMS_ITS | Referral Summary ---
Author Organization [facility] Address [address] [place] [address] Care Team Providers Care Receiving Dock Checker Name Role Phone Jeanie Mc MD Primary Care Provider [phone] Allergies No known active allergies Medications azelastine [...] 4 (four) times a day 5 capsule 4 Active Active Problems Problem Noted Date Diagnosed Date Left ureteral stone 08/10/2023 Social History Tobacco Use Types Packs/Day Years Used Date Smoking Tobacco: Never Smokeless Tobacco: Never AUDIT-C Answer Date Recorded Q1: How often do you have a drink containing alcohol? Never 09/27/2023 Q2: How many drinks containi ng alcohol do you have on a typical day when you are drinking? Patient does not drink 4 Frequency of Binge Drinking Not on file 01/2024 Personal Safety Answer Date Recorded Have you ever been in or are you currently in a harmful physical or emotional relationship or is someone making you feel afraid or unsafe? Denies 10/01/2023 Sex and Gender Information Value Date Recorded Sex Assigned at Not on file Legal Sex Male 1:41 AM CALENDER MACHINE OPERATOR HELPER Gender Identity Not on file Sexual Orientation Not on file Last Filed Vital Signs [...] 10/01/2023 8:53 PM CDT Plan of Treatment Not on file Medical Devices Implanted Type Area Laborer Shellfish Processing Device Identifier Shelf Expiration Date Model / Serial / Lot [employer] July Contour 6fr 26cm Large Inner Lumen Low Profile Bladder Tushar Taper Latex Free 180-223 - [id number] Implanted:Qty: 1 on 09/27/2023 by Kevin Alvarenga MD at [facility] Left: Ureter [employer] July 05/04/2026 [id number] / / [id number] Explanted Type Area Laborer Shellfish Processing Device Identifier Shelf Expiration Date Model / Serial / Lot [employer] July Contour 6fr 26cm Large Inner Lumen Low Profile Bladder Tushar Taper Latex Free 180-223 - [id number] Implanted:Qty: 1 on 08/16/2023 by Kevin Alvarenga MD at [facility] Explanted:Qty: 1 on 09/27/2023 at [facility] Left: Ureter [employer] July 04/10/2026 [id number] / / [id number] Insurance AETNA MEDICARE Care Teams Receiving Dock Checker Relationship Specialty Start Date End Date Jeanie Mc MD PCP - General Family Medicine 09/07/23
--- OUTSIDE RECORDS SUMMARY | 2024-08-19 15:27 | XMS_ITS | Encounter Summary ---
Author Organization [facility] Address [address] [place] [address] Phone Care Team Providers Care Maintenance Engineer Name Role Phone Thomas Moody DPM Unavailable [phone] Anais Randolph MD Primary Care Provider [phone] Reason for Visit * Reason Onset Date Comments Form Completion 08/18/2024 Encounter Details Date Type Department Care Team (Late st Contact Info) Description 08/18/2024 [facility]phone [facility] - [place] [address] [place] [address] Maria L Hernandez, CLINICAL TRIAL LEADER, HIGH SCHOOL SCIENCE TEACHER [address] [place] [address] Form Completion Social History Tobacco Use Types Packs/Day Years Used Date Smoking Tobacco: Never Smokeless Tobacco: Never Alcohol Use Standard Drinks/Week Comments No 0 (1 standard drink = 0.6 oz pur e alcohol) [facility] Utilities Answer Date Recorded In the past 12 months has [employer], gas, oil, or water [facility] threatened to shut off services in your home? Patient declined 07/21/2024 Social Connection and Isolation Panel [NHANES] A nswer Date Recorded In a typical week, how many times do you talk on the phone with family, friends, or neighbors? Never 07/30/2023 How often do you get togethe r with friends or relatives? Patient declined 07/30/2023 How often do you attend sikhism or jehovah's witness serv ices? Patient declined 07/30/2023 Do you belong to any clubs o r organizations such as sikhism groups, unions, fraternal or athletic groups, or [...] and heating? Patient unable to answer 07/30/2023 [facility] - Occupational Stress [...] place to sleep or slept in a mcfp (including now)? No 07/30/2023 Housing Stability Vital [...] any time in the past 12 m [facility], were you homeless or living in a mcfp (including now)? Patient declined 07/21/2024 Sexually Active [facility] Comments Not Currently Sex and Gender Information Value Date Recorded Sex Assigned at Not on file Legal Sex Male 11:26 PM CDT Gender Identity Not on file Sexual Orientation Not on file Occupation Industry Job Start Date Job End Date disabled Not on file Not on file Not on file documented as of this encounter Miscellaneous Notes * Telephone Encounter - Sintia Gallardo RMA - 08/18/2024 3:00 PM CST Form from [employer] on provider desk for signature for DME order OR WIND INSTRUMENT REPAIRER documented in this encounter Plan of Treatment Upcoming Encounters Date Type Department Care Team (Late st Contact Info) Description 08/25/2024 9:30 AM REED OR WIND INSTRUMENT REPAIRER [facility] [address] [place] [address] Markel Bonilla MD [address] [place] [address] Discharge Disposition: Discharged to home or Selfcare 08/26/2024 9:30 AM REED OR WIND INSTRUMENT REPAIRER Office Visit [facility] - Primary Care - [place] [address] [place] [address] Maria L Hernandez, CLINICAL TRIAL LEADER, HIGH SCHOOL SCIENCE TEACHER [address] [place] [address] 11/07/2024 9:30 AM CDT Office Visit [facility] - Primary Care - [place] [address] [place] [address] Anais Randolph MD [address] [place] [address] documented as of this encounter Visit Diagnoses Not on filedocumented in this encounter Additional Health Concerns Assessment Noted Time PHQ-9 Depression Total Score: 0 10/12/19 18 10:00 AM CDT documented as of this encounter Care Teams Maintenance Engineer Relationship Specialty Start Date End Date Anais Randolph MD [address] [place] [address] PCP - General Family Medicine 11/05/23 Thomas Moody DPM Consulting Physician Podiatry 08/09/15 documented as of this encounter
--- OUTSIDE RECORDS SUMMARY | 2024-08-19 15:27 | XMS_ITS | Continuity of Care Document ---
Author Organization [place] - [facility] Mike Adair Address [address] [place] [address] Assessment No assessment recorded. Plan of Treatment Reminders Order Date Submit Date Provider Last Modified By Organization Details Last Modified Time Details Appointments Procedure 15 2024 10:00A M CLIFFORD Millard Not available Not available Not available Lab None recorded. Referral None recorded. Procedures cerumen removal (PROC) 2024 025 [email or web address] Not available 08/19/2024 13:04:25 Surgeries None recorded. Imaging None recorded. Medication Orders None recorded. Patient TargetsNo targets recorded. Patient Instructions Encounter Date Encounter Id Patient Instructions Last Modified By Organization Details Last Modified Time 08/18/2024 [id number] Follow-up in 6 months for routine cerumen removal [email or web address] Not available 08/18/2024 10:53:16 Reason for Referral None Reported. Problems Name Problem SNOMED Code Status Onset Date Resolution Date Notes Provider Name and Address Organization Details Recorded Time Impacted cerumen of bilateral ears 9604230616466 108 Active 2021 Not Available [facility] 3 06:02:03 Hearing loss 28546775 Active 2021 Not Available [facility] 3 06:02:03 Problem Notes None recorded. Medical Equipment None Reported. Allergies No known drug allergies Medications Name Sig Start Date Stop Date Status Note LastModified by Organization Details LastModified Time lamotrigine 150 mg tablet 03/26 completed Not Available Not Available Not Available acetaminoph en 325 mg tablet Take 2 tablets every 6 hours by oral route. active Not Available Not Available No t Available lamotrigine 200 mg tablet active Not Available Not Available Not Available hydrocodone 5 mg-acetamin ophen 325 mg tablet 03/26 completed Not Available Not Available Not Available permethrin 5 % topical cream 08/10 /2020 completed Not Available Not Available Not Available melatonin 3 mg tablet active Not Available Not Available No t Available trimethopri m 100 mg tablet active Not Available Not Available Not Available sulfamethox azole 800 mg-trimetho prim 160 mg tablet 03/26 completed Not Available Not Available Not Available rivastigmin e 6 mg capsule active Not Available Not Available Not Available oxycodone-a cetaminophe n 5 mg-325 mg tablet 03/26 completed Not Available Not Available Not Available methenamine hippurate 1 gram tablet active Not Available Not Available Not Available cephalexin 500 mg capsule TAKE 1 CAPSULE BY MOUTH EVERY 6 HOURS FOR 7 DAYS 08/18 completed Not Available Not Available Not Available simvastatin 20 mg tablet active Not Available Not Available Not Available nystatin 100,000 unit/gram topical cream active Not Available Not Available Not Available docusate sodium 100 mg capsule active Not Available Not Available N ot Available azelastine 137 mcg (0.1 %) nasal spray INSTILL 2 SPRAYS IN NOSTRILS TWICE DAILY. 7AM-9PM active Not Available Not Available No t Available haloperidol 2 mg tablet 04/11 completed Not Available Not Available Not Available cefdinir 300 mg capsule 03/26 completed Not Available Not Available Not Available finasteride 5 mg tablet active Not Available Not Available Not Available amoxicillin 875 mg-potassiu m clavulanate 125 mg tablet 03/26 completed Not Available Not Available Not Available amoxicillin 500 mg-potassiu m clavulanate 125 mg tablet 03/26 completed Not Available Not Available Not Available Oyster Shell Calcium-Vit osorio D3 500 mg-5 mcg (200 unit) tablet active Not Available Not Available Not Available memantine 10 mg tablet active Not Available Not Available Not Available memantine 5 mg tablet 11/16 completed Not Available Not Available Not Available docusate sodium 05/24 completed Not Available Not Available Not Available quetiapine ER 400 mg tablet,exte nded release 24 hr active Not Available Not Available Not Available quetiapine ER 300 mg tablet,exte nded release 24 hr 03/26 completed Not Available Not Available Not Available Chest Congestion Relief 100 mg/5 mL oral liquid active Not Available Not Available Not Available A and D Diaper Rash Cream 1 %-10 % topical active Not Available Not Available Not Available quetiapine ER 50 mg tablet,exte nded release 24 hr 03/26 completed Not Available Not Available Not Available azelastine 205.5 mcg (0.15 %) nasal spray 04/11 completed Not Available Not Available Not Available lurasidone 80 mg tablet active Not Available Not Available Not Available lurasidone 60 mg tablet 03/26 completed Not Available Not Available Not Available Vitals Date Recorded Body height Body mass index (BMI) Body weight Body temperature Provider Name and Address Organization Details Last Updated DateTime 08/18/2024 182.88 cm 25.2 kg/m2 89677.18 g 97.7 [degF] Sintia Ruffin RN [place] [facility] [employer] 08/18/2024 10:33:38 Social History Question Answer Notes LastModified by Organizat ion Details LastModified Time Tobacco Smoking Status Never Smoker Not Available [facility] 09/20/2022 05:55:08 What Is Your Level Of Alcohol Consumption? None [id number] Information not available 09/20/2022 In The 14 Days Before Symptom Onset, Have You Had Close Contact With A Laboratory-confirm ed COVID-19 While That Case Was Ill? No [id number] Information not available 09/20/2022 In The 14 Days Before Symptom Onset, Have You Had Close Contact With A Person Who Is Under Investigation For COVID-19 While That Person Was Ill? No [id number] Information not available 09/20/2022 Do You Use Any Illicit Or Recreational Drugs? No [id number] [id number] Information not available 09/20/2022 Has Tobacco Cessation Counseling Been Provided? No [id number] 026 Information not available 09/20/2022 Have You Recently Traveled Abroad? No [id number] Information not available 09/20/2022 Sex: Unknown Functional Status None recorded. Mental Status None recorded. Family History Nothing Reported. Medical History Condition Response DIABETES, TYPE N HYPERTENSION Y EAR OR HEARING PROBLEMS Y HIGH CHOLESTEROL / HYPERLIPIDEMIA Y Past Encounters Encounter ID Performer Location Encounter Start Date Encounter Closed Date Diagnosis/Indication Diagnosis SNOMED-CT Code Diagnosis ICD10 Code Diagnosis Note [id number] CLIFFORD Millard [facility] [place] [address] [place] [address] 08/18/2024 10:18:35 08/18/2024 10:54:01 Impacted cerumen of bilateral ears 5059721661 804685 H61.23 cerumen removed with irrigation bilaterall y. Health Concerns Section Related Observation LastModified by Organization Detai ls LastModified Time None Recorded Concern Status LastModified by Organization Details LastModified Time None Recorded Payers Encounter Date Sequence Insurance Name Policy Number Policy Hopkins Covered Member ID Hopkins Member ID Guarantor Name 08/18/2024 2 [place] [facility] Rod Randall [id number] Rod Randall 08/18/2024 1 [employer] (MEDICARE REPLACEMENT PPO) [id number] Rod Randall [id number] Rod Randall Notes Date Note Type Note Provider Name and Address Organization Details Recorded Time 08/18/2024 text/html the patient routine follow-up for cerumen removal. Denies any otalgia. Denies use of any siki-ptg-bjjrju r ear wax removal kits. CLIFFORD Millard [address] [facility], [facility] [address], [place], [address], [place] [facility] 08/18/2024 10:53:22
--- OUTSIDE RECORDS SUMMARY | 2024-08-19 15:28 | XMS_ITS | Data Portability ---
Author Organization [place] - [facility], Main Office Address [address] [place] [address] Assessment No assessment recorded. Plan of Treatment Reminders Order Date Submit Date Provider Last Modified By Organization Details Last Modified Time Details Appointments Procedure 15 2024 10:00A M CLIFFORD Millard Not available Not available Not available Lab None recorded. Referral None recorded. Procedures cerumen removal (PROC) 2023 024 Not available 03/27/2024 09:43:17 cerumen removal (PROC) 2024 025 Not available 08/19/2024 13:04:25 Surgeries None recorded. Imaging None recorded. Medication Orders None recorded. Patient TargetsNo targets recorded. Patient Instructions Encounter Date Encounter Id Patient Instructions Last Modified By Organization Details Last Modified Time 08/18/2024 [id number] Follow-up in 6 months for routine cerumen removal [email or web address] Not available 08/18/2024 10:53:16 Reason for Referral None Reported. Results Created Date Observation Date Name Description Value Unit Range Abnormal Flag Note LastModifiedBy Organization Detail LastModifiedTime 07/15/2007/13/2023 CT, urogr am No observ ation record ed. [email or web address] [place], [address], 02/20/2024 14:05:25 07/27/19 24 07/26/2023 XR, kidne y + urete r + bladd er No observ ation record ed. [email or web address] [place], [address], 02/20/2024 14:06:07 04/11/20 24 04/09/2024 CT, abdom en + pelvi s, w/o contr ast No observ ation record ed. [facility] [address] [place], [address], 04/14/2024 08:49:47 Result Notes None recorded. Problems Name Problem SNOMED Code Status Onset Date Resolution Date Notes Provider Name and Address Organization Details Recorded Time Impacted cerumen of bilateral ears 5454107364353 108 Active 2021 Not Available [facility] 3 06:02:03 Hearing loss 34600314 Active 2021 Not Available [facility] 3 06:02:03 Problem Notes None recorded. Procedures Surgical History None recorded. Imaging Results Imaging Date Name Status LastModified by Organiz ation Details LastModified Time 07/13/2023 CT, urogram completed [address] [place], [address], 02/20/2024 14:05:25 07/26/2023 XR, kidney + ureter + bladder completed [address] [place], [address], 02/20/2024 14:06:07 04/09/2024 CT, abdomen + pelvis, w/o contrast completed [address] [place], [address], 04/14/2024 08:49:47 Procedure Notes None recorded. Medical Equipment None Reported. [...] Not Available permethrin 5 % topical cream 03/01 completed Not Available Not Available Not Available [...] Available Not Available Vitals Date Recorded Body mass index (BMI) Body height Body temperature Body weight Provider Name and Address Organization Details Last Updated DateTime 04/11/2022 26 kg/m2 182.88 cm 97.6 [degF] 80606.58 g Not Available [facility] 09/20/2022 06:00:01 Date Recorded Body height Body mass index (BMI) Body weight Body temperature Provider Name and Address Organization Details Last Updated DateTime 11/16/2022 182.88 cm 25.8 kg/m2 77598.55 g 97.5 [degF] Glenny Hussein CMA [facility] [employer] [facility] 11/16/2022 11:01:38 Date Recorded Body height Body mass index (BMI) Body weight Body temperature Provider Name and Address Organization Details Last Updated DateTime 05/24/2023 182.88 cm 25.5 kg/m2 74483.37 g 97.8 [degF] Sintia Ruffin RN [facility] [employer] [facility] 05/24/2023 14:02:28 Date Recorded Body height Body mass index (BMI) Body weight Body temperature Provider Name and Address Organization Details Last Updated DateTime 03/26/2024 182.88 cm 26.2 kg/m2 88718.76 g 97.8 [degF] ROBINSON Mathew [facility] [employer] [facility] 03/26/2024 12:20:57 Date Recorded Body height Body mass index (BMI) Body weight Body temperature Provider Name and Address Organization Details Last Updated DateTime 08/18/2024 182.88 cm 25.2 kg/m2 41895.18 g 97.7 [degF] Sintia Ruffin RN [facility] [employer] [facility] 08/18/2024 10:33:38 Social History Question Answer Notes LastModified by Organizat ion Details LastModified Time Tobacco Smoking Status Never Smoker Not Available [facility] 09/20/2022 05:55:08 What Is Your Level Of Alcohol Consumption? None [id number] Information not available 09/20/2022 In The 14 Days Before Symptom Onset, Have You Had Close Contact With A Laboratory-confirm ed COVID-19 While That Case Was Ill? No [id number] 026 Information not available 09/20/2022 In The 14 Days Before Symptom Onset, Have You Had Close Contact With A Person Who Is Under Investigation For COVID-19 While That Person Was Ill? No [id number] 026 Information not available 09/20/2022 Do You Use Any Illicit Or Recreational Drugs? No [id number] 026 Information not available 09/20/2022 Has Tobacco Cessation Counseling Been Provided? No [id number] 026 Information not available 09/20/2022 Have You Recently Traveled Abroad? No [id number] 026 Information not available 09/20/2022 Sex: Unknown Functional Status None recorded. Mental Status None recorded. Family History Nothing Reported. Medical History Condition Response DIABETES, TYPE N HYPERTENSION Y EAR OR HEARING PROBLEMS Y HIGH CHOLESTEROL / HYPERLIPIDEMIA Y Past Encounters Encounter ID Performer Location Encounter Start Date Encounter Closed Date Diagnosis/Indication Diagnosis SNOMED-CT Code Diagnosis ICD10 Code Diagnosis Note [id number] _ATHENA_M IGRATION_ DEFAULT_1 _1 , 03/04/2021 00:00:00 03/04/2021 12:00:28 [id number] _ATHENA_M IGRATION_ DEFAULT_1 _1 , 09/28/2021 00:00:00 09/28/2021 12:07:26 [id number] [facility] [place] [address] [place] [address] 04/11/2022 00:00:00 04/11/2022 11:28:20 [id number] [facility] [place] [address] [place] [address] 11/16/2022 10:55:49 11/16/2022 11:22:06 Impacted cerumen of bilateral ears [id number] 645023 H61.23 [id number] [facility] [place] [address] [place] [address] 05/24/2023 13:56:41 05/24/2023 15:06:49 Impacted cerumen of bilateral ears 1550013759 258449 H61.23 [id number] CLIFFORD Millard [facility] [place] [address] [place] [address] 03/26/2024 11:49:11 03/26/2024 12:37:25 Impacted cerumen of bilateral ears 6009350367 786635 H61.23 [id number] CLIFFORD Millard [facility] [place] [address] [place] [address] 08/18/2024 10:18:35 08/18/2024 10:54:01 Impacted cerumen of bilateral ears 9296752024 947929 H61.23 cerumen removed with irrigation bilaterall y. Health Concerns Section Related Observation LastModified by Organization Detai ls LastModified Time None Recorded Concern Status LastModified by Organization Details LastModified Time None Recorded Advance Directives Directive None Recorded Payers Encounter Date Sequence Insurance Name Policy Number Policy Hopkins Covered Member ID Hopkins Member ID Guarantor Name 11/16/2022 1 [facility] (MEDICARE REPLACEMENT/AD VANTAGE - PPO) [id number] Rod Randall [id number] Rod Randall 11/16/2022 2 [place] [facility] PUBLIC AID Rod Randall [id number] Rod Randall 05/24/2023 2 [place] [facility] Rod Randall [id number] Rod Randall 05/24/2023 1 [place] Rod Randall [id number] Rod Randall 03/26/2024 2 [place] [facility]ID Rod Randall [id number] Rod Randall 03/26/2024 1 [employer] (MEDICARE REPLACEMENT PPO) [id number] Rod Randall [id number] Rod Randall 08/18/2024 2 [place] [facility] Rod Randall [id number] Rod Randall 08/18/2024 1 [employer] (MEDICARE REPLACEMENT PPO) [id number] Rod Randall [id number] Rod Randall Notes Date Note Type Note Provider Name and Address Organization Details Recorded Time 11/16/2022 text/html Cerumen impaction Jake Crowley MD [address], [place], [address], [employer] 11/16/2022 11:16:35 05/24/2023 text/html Cerumen impaction Jake Crowley MD [address], [place], [address], [employer] 05/24/2023 14:19:44 03/26/2024 text/html Patient presents from his long-term care facility for routine cerumen impaction removal. He denies any complaints. CLIFFORD Millard [address], [place], [address], [employer] 03/26/2024 12:36:41 08/18/2024 text/html the patient routine follow-up for cerumen removal. Denies any otalgia. Denies use of any jacc-axm-gojhfyt ear wax removal kits. CLIFFORD Millard [address], [place], [address], [employer] 08/18/2024 10:53:22
--- OUTSIDE RECORDS SUMMARY | 2024-08-19 15:28 | XMS_ITS | Clinical Summary ---
Author Organization [facility] Address [address] [place] [address]. [place], [place] [address] [place] [address] Care Team Providers Care Administrative Aide Name Role Phone Unavailable Primary Care Provider Unavailabl e Social History Tobacco Use Types Packs/Day Years Used Date Smoking Tobacco: Never Assessed Sex and Gender Information Value Date Recorded Sex Assigned at Not on file Legal Sex Male 8:03 AM CDT Gender Identity Not on file Sexual Orientation Not on file Plan of Treatment Health Maintenance Due Date Last Done Comments Colorectal Cancer Screening Colonoscopy (10 Years) 1950 Hepatitis C 01/23/1968 DTaP, Tdap and Td Vaccines ( 1 - Tdap) 1969 Zoster Vaccines (1 of 2) 01/23/2000 Pneumococcal Vaccine: 65+ Ye ars (1 of 1 - PCV) 2015 COVID-19 Vaccine ( - 2023-2 5 season) 2024 Influenza Adult (#1) 2024 RSV Immunization or 60+ Years (1 - 1-dose 75+ series) 2025 Meningococcal B Vaccine Aged Out No l onger eligible based on patient's age to complete this topic Meningococcal Vaccine Aged Out No radu juany eligible based on patient's age to complete this topic RSV Immunizations Under 20 Months Aged Out No longer eligible based on patient's age to complete this topic
== END 2024-08-19 14:59 | disposition home or self-care (01) ==
LOC: ANHBWCAUD 14:59
DX: H61.21 Impacted cerumen, right ear (principal)
CPT/HCPCS: 92556; 92567; 92587